=== PATIENT | female | born 1995 | race Caucasian/White ===

== ENCOUNTER → 2019-03-23 | Outpatient (CLI) | payer OTHER ==
--- NOTE | 2019-03-23 15:40 | REP ---
REASON: Back pain and right sided lower extremity radicular symptoms. PRIORS: None. FINDINGS: Five views of the lumbosacral spine show no acute fracture, dislocation or subluxation. The intervertebral disc spaces are symmetric and well maintained. There is no spondylolisthesis. The pedicles are intact bilaterally and there is no destructive osseous lesions. IMPRESSION: Unremarkable lumbosacral spine series. Electronically Signed by Justice Lerma DO 03/23/2019 04:50 P
== END ==
LOC: M RAD 14:12
PROVIDERS: ATTEND Physician Assistant Medical
DX: M54.31 Sciatica, right side (principal)

== ENCOUNTER 2019-04-20 15:18 | Emergency (ER) | payer OTHER ==
[~2019-04-20] VITALS: Ht 160 cm; Wt 65.4 kg
[2019-04-20 16:54] VITALS: BP 128/72
--- NOTE | 2019-04-20 17:31 | REP ---
LEFT ELBOW, FOUR VIEWS: Four views of the left elbow were performed. Plate and screws are seen in the distal humeral shaft. No acute fracture, dislocation or instrinsic bone disease is visualized.. There is no joint effusion at the elbow. IMPRESSION: No acute fracture or dislocation. Electronically Signed by Rosendo Newton MD 04/22/2019 09:56 A
--- NOTE | 2019-04-20 17:32 | REP ---
LEFT HUMERUS: Two views of the left humerus were performed. No acute fracture or dislocation is seen. Metallic plate and multiple screws are seen in the humeral shaft. IMPRESSION: No acute fracture or dislocation. Electronically Signed by Rosendo Newton MD 04/22/2019 09:55 A
== END 2019-04-20 17:25 | disposition home or self-care (01) ==
LOC: M ED 15:18
DX: S40.012A Contusion of left shoulder, initial encounter (principal); W22.8XXA Striking against or struck by other objects, initial encounter; Y92.69 Other specified industrial and construction area as the place of occurrence of the external cause; Z91.030 Bee allergy status